=== PATIENT | female | born 1950 | race Native Hawaiian/Other Pacific Islander ===

== ENCOUNTER 2018-03-16 10:19 | Outpatient (CLI) | payer MEDICARE, MEDICAID | END 2018-03-16 10:20 | disposition home or self-care (01) | LOC: BICMAMMO 10:19 | PROVIDERS: ATTEND Family Medicine | DX: Z12.31 Encounter for screening mammogram for malignant neoplasm of breast (principal); R92.1 Mammographic calcification found on diagnostic imaging of breast | CPT/HCPCS: 77063; 77067 ==

== ENCOUNTER 2019-01-03 08:34 | Emergency (ER) | payer MEDICARE, MEDICAID ==
[2019-01-03] MEDS ORDERED: Acetaminophen 500 MG TAB ONE (09:02)
[2019-01-03 09:11] LABS: #Basophils 0.1 thou/uL (0.0-0.2); #Eosinphils 0.1 thou/uL (0.0-0.7); #Lymphocytes 1.7 thou/uL (1.20-3.40); #Neutrophils 8.3 thou/uL (1.40-6.50); %Basophils 0.5 % (0.0-1.0); %Eosinophils 0.7 % (0.0-10.0); %Lymphocytes 15.7 % (21.0-51.0); %Monocytes 8.8 % (0.0-10.0); %Neutrophils 74.3 % (42.0-75.0); Hemoglobin 14.9 g/dL (12.0-16.0); Mean Corpuscular HGB CONC 34.9 g/dL (32.0-36.0); Mean Corpuscular Hemoglobin 30.3 pg (27.0-31.0); Mean Corpuscular Volume 86.7 fL (78.0-98.0); Mean Platelet Volume 9.3 fL (7.4-10.4); Platelet Count 161 thou/uL (130-400); Red Blood Cell (RBC) Count 4.92 mill/uL (4.20-5.40); White Blood Cell (WBC) Count 11.1 thou/uL (4.8-10.8)
--- NOTE | 2019-01-03 09:25 | RAD ---
EXAM: Portable chest PROVIDED CLINICAL HISTORY: Dyspnea COMPARISON: 01/12/2013 FINDINGS: Cardiac and mediastinal silhouette is within normal limits. No focal consolidation, pleural fluid or pneumothorax evident. Atherosclerosis and emphysematous changes are redemonstrated. IMPRESSION: No evidence for an acute cardiopulmonary process.
[2019-01-03] MEDS ORDERED: cefTRIAXone\\ROCEPHIN 1 GM VIAL ONE (09:33)
[2019-01-03 09:36] LABS: ALT (SGPT) 25 U/L (8-55); AST (SGOT) 29 U/L (5-34); Albumin 4.2 g/dL (3.4-4.8); Alkaline Phosphatase 123 U/L (40-150); Anion Gap 12 mmol/L (10-20); BUN (Urea Nitrogen) 11 mg/dL (9.8-20.1); Bilirubin, Total 0.6 mg/dL (0.2-1.2); Calc. Creatinine Clearance 0 mL/min (70-130); Calcium 9.8 mg/dL (7.8-10.44); Carbon Dioxide 22 mmol/L (23-31); Chloride 101 mmol/L (98-107); Estimated GFR-MDRD 60; Globulin 3.6 g/dL (2.4-3.5); Glucose 231 mg/dL (80-115); Potassium 4.4 mmol/L (3.5-5.1); Protein, Total 7.8 g/dL (6.0-8.3); Sodium 131 mmol/L (136-145)
[2019-01-03] MEDS ORDERED: Azithromycin 250 MG TAB ONE (11:56)
== END 2019-01-03 12:03 | disposition home or self-care (01) ==
LOC: ERS 08:34
DX: R05 Cough (principal); R50.9 Fever, unspecified; E03.9 Hypothyroidism, unspecified; E11.9 Type 2 diabetes mellitus without complications; E78.5 Hyperlipidemia, unspecified; J45.909 Unspecified asthma, uncomplicated; K21.9 Gastro-esophageal reflux disease without esophagitis
CPT/HCPCS: 36415; 71045; 80053; 83605; 85025; 87040; 87804; 94640; 96361; 96365; J0696; J7620

== ENCOUNTER 2019-04-14 07:18 | Outpatient (CLI) | payer MEDICARE, MEDICAID | END 2019-04-14 07:19 | disposition home or self-care (01) | LOC: CP 07:18 | PROVIDERS: ATTEND Internal Medicine | DX: J45.909 Unspecified asthma, uncomplicated (principal) | CPT/HCPCS: 36415; 80053; 80061; 83036; 84439; 84443; 94060; 94727; 94729 ==

== ENCOUNTER 2019-05-06 08:57 | Outpatient (CLI) | payer MEDICARE, MEDICAID ==
--- NOTE | 2019-05-06 10:32 | MMO ---
Bilateral MAMMO Bilat Screen DDI+NO. CLINICAL HISTORY: Patient is 68 years old and is seen for screening. The patient has no family history of breast cancer. The patient has no personal history of cancer. The patient has a history of left Ultrasound Guided Core Biopsy in July, - benign and bilateral Breast reduction at age 27 - benign. VIEWS: The views performed were: bilateral craniocaudal with tomosynthesis and bilateral mediolateral oblique with tomosynthesis. FILMS COMPARED: The present examination has been compared to prior imaging studies performed at [facility] on 06/14/2015, 02/20/2017 and 03/16/2018, and at [facility] on 06/08/2015. MAMMOGRAM FINDINGS: There are scattered fibroglandular densities. There are vascular calcifications seen in both breasts. There are no suspicious masses, suspicious calcifications, or new areas of architectural distortion. IMPRESSION: THERE IS NO MAMMOGRAPHIC EVIDENCE OF MALIGNANCY. A ROUTINE FOLLOW-UP MAMMOGRAM IN 1 YEAR IS RECOMMENDED. THE RESULTS OF THIS EXAM WERE SENT TO THE PATIENT. ACR BI-RADS Category 2 - Benign finding MAMMOGRAPHY NOTE: 1. A negative mammogram report should not delay a biopsy if a dominant of clinically suspicious mass is present. 2. Approximately 10% to 15% of breast cancers are not detected by mammography. 3. Adenosis and dense breasts may obscure an underlying neoplasm. Reported by: VANESA COLLINS MD Electonically Signed: [id number]
== END 2019-05-06 08:58 | disposition home or self-care (01) ==
LOC: BICMAMMO 08:57
PROVIDERS: ATTEND Family Medicine
DX: Z12.31 Encounter for screening mammogram for malignant neoplasm of breast (principal)
CPT/HCPCS: 77063; 77067

== ENCOUNTER 2019-08-19 10:09 | Outpatient (CLI) | payer MEDICARE, MEDICAID ==
--- NOTE | 2019-08-19 11:01 | CT ---
CT Stone Protocol 08/19/2019 12:00 AM HISTORY: Nephrolithiasis. COMPARISON: None. Technique: Multiple contiguous axial CT images are obtained through the abdomen and pelvis without IV contrast. Coronal reformats are provided. FINDINGS: This examination is limited for the evaluation of solid organs and vascular structures due to the lac k of intravenous contrast. Lower Chest: Mild bibasilar atelectasis. Abdomen: Liver: Grossly normal non-enhanced CT appearance. Gallbladder: Within normal limits for CT imaging. Pancreas: Grossly normal nonenhanced CT appearance. Spleen: Grossly normal nonenhanced CT appearance. Adrenals: Grossly normal nonenhanced CT appearance. Kidneys: No renal calculi are visualized, and there is no evidence of hydronephrosis. Ureters: No ureteral calculus is seen.. Pelvis: Urinary bladder: Decompressed but grossly within normal limits Reproductive Organs: Uterus is surgically absent. Lymph Nodes: No enlarged lymph nodes. Bowel: Small bowel is normal in caliber. Small amount retained fecal material seen throughout the col on. Appendix: The appendix is normal in caliber. Peritoneum: No free fluid, free air, or fluid collection. Retroperitoneum: within normal limits. Vessels: Vascular calcifications are seen in the abdominal aorta and involving the iliac arteries. Va scular calcifications are seen in the coronary arteries. Abdominal Wall: Tiny fat-containing umbilical hernia is present. Bones: Degenerative changes are seen in the spine IMPRESSION: 1. No renal or ureteral calculi are seen bilaterally. 2. Hysterectomy. 3. Vascular calcifications.
== END 2019-08-19 10:10 | disposition home or self-care (01) ==
LOC: BICCT 10:09
PROVIDERS: ATTEND Family Medicine
DX: N20.0 Calculus of kidney (principal); I70.90 Unspecified atherosclerosis; Z90.710 Acquired absence of both cervix and uterus
CPT/HCPCS: 74176

== ENCOUNTER 2020-04-03 10:46 | Emergency (ER) | payer MEDICARE, MEDICAID ==
[2020-04-03] MEDS ORDERED: Lidocaine 1% w/Epinephrine 1:100K 20 ML VIAL ONE (12:21)
[2020-04-03] MEDS ORDERED: Adacel (T-DAP) 0.5 ML SYRINGE ONE (12:22)
[2020-04-03] MEDS ORDERED: Bacitracin 1 PK ONE (13:06)
== END 2020-04-03 13:30 | disposition home or self-care (01) ==
LOC: ERS 10:46
DX: S81.812A Laceration without foreign body, left lower leg, initial encounter (principal); E03.9 Hypothyroidism, unspecified; K21.9 Gastro-esophageal reflux disease without esophagitis; E78.5 Hyperlipidemia, unspecified; J45.909 Unspecified asthma, uncomplicated; E11.9 Type 2 diabetes mellitus without complications; W25.XXXA Contact with sharp glass, initial encounter
CPT/HCPCS: 12001; 90471; 90715

== ENCOUNTER 2020-06-21 13:35 | Outpatient (CLI) | payer MEDICARE, MEDICAID ==
--- NOTE | 2020-06-21 14:01 | BD ---
EXAM: DEXA bone density examination HISTORY: 69-year-old postmenopausal female for screening COMPARISON: 06/08/2015 FINDINGS: L1--bone mineral density 0.904 g/sq cm; T score -0.8 L2--bone mineral density 1.034 g/sq cm; T score 0.1 L3--bone mineral density 1.130 g/sq cm; T score 0.4 L4--bone mineral density 1.202 g/sq cm; T score 1.3 Total L1-L4--bone mineral density 1.075 g/sq cm; T score 0.3 Left femoral neck--bone mineral density0.638; T score -1.9 Total proximal left femur--bone mineral density 0.918; T score -0.2 IMPRESSION: Osteopenia. This patient has a 10 year WHO fracture risk of a major osteoporotic fracture of 10% and of a hip fracture of 1.7%. When compared to the prior examination, the bone density in the spine is increased 5% and the bone density in the hip has increased 8%.
== END 2020-06-21 13:36 | disposition home or self-care (01) ==
LOC: BICMAMMO 13:35
PROVIDERS: ATTEND Family Medicine
DX: Z13.820 Encounter for screening for osteoporosis (principal); N95.1 Menopausal and female climacteric states; M85.89 Other specified disorders of bone density and structure, multiple sites
CPT/HCPCS: 77080

== ENCOUNTER 2020-08-22 09:52 | Outpatient (CLI) | payer MEDICARE, MEDICAID ==
--- NOTE | 2020-08-22 10:46 | MMO ---
Bilateral MAMMO Bilat Screen DDI+NO. CLINICAL HISTORY: Patient is 70 years old and is seen for screening. The patient has no family history of breast cancer. The patient has no personal history of cancer. The patient has a history of left Ultrasound Guided Core Biopsy in July, - benign and bilateral Breast reduction at age 27 - benign. VIEWS: The views performed were: bilateral craniocaudal with tomosynthesis and bilateral mediolateral oblique with tomosynthesis. FILMS COMPARED: The present examination has been compared to prior imaging studies performed at [facility] on 06/14/2015, 02/20/2017, 03/16/2018 and 05/06/2019. This study has been interpreted with the assistance of computer-aided detection. MAMMOGRAM FINDINGS: There are scattered fibroglandular densities. There is a stable nodule with associated biopsy clip seen in the outer region of the left breast. There are no suspicious masses, suspicious calcifications, or new areas of architectural distortion. IMPRESSION: THERE IS NO MAMMOGRAPHIC EVIDENCE OF MALIGNANCY. A ROUTINE FOLLOW-UP MAMMOGRAM IN 1 YEAR IS RECOMMENDED. THE RESULTS OF THIS EXAM WERE SENT TO THE PATIENT. ACR BI-RADS Category 2 - Benign finding MAMMOGRAPHY NOTE: 1. A negative mammogram report should not delay a biopsy if a dominant of clinically suspicious mass is present. 2. Approximately 10% to 15% of breast cancers are not detected by mammography. 3. Adenosis and dense breasts may obscure an underlying neoplasm. Reported by: PAUL TORRES MD Electonically Signed: [id number]
== END 2020-08-22 09:53 | disposition home or self-care (01) ==
LOC: BICMAMMO 09:52
PROVIDERS: ATTEND Family Medicine
DX: Z12.31 Encounter for screening mammogram for malignant neoplasm of breast (principal); Z98.890 Other specified postprocedural states
CPT/HCPCS: 77063; 77067

== ENCOUNTER 2020-12-16 11:47 | Emergency (ER) | payer MEDICARE, MEDICAID ==
[2020-12-16] MEDS ORDERED: hydrOXYzine 25 MG TAB ONE (12:16)
== END 2020-12-16 12:47 | disposition home or self-care (01) ==
LOC: ERS 11:47
DX: L23.9 Allergic contact dermatitis, unspecified cause (principal); E11.9 Type 2 diabetes mellitus without complications; E03.9 Hypothyroidism, unspecified; K21.9 Gastro-esophageal reflux disease without esophagitis; E78.5 Hyperlipidemia, unspecified; J45.909 Unspecified asthma, uncomplicated
CPT/HCPCS: 99282

== ENCOUNTER 2021-01-22 09:43 | Outpatient (CLI) | payer MEDICARE, MEDICAID | END 2021-01-22 09:44 | disposition home or self-care (01) | LOC: BICRAD 09:43 | DX: M25.561 Pain in right knee (principal); R07.81 Pleurodynia ==

== ENCOUNTER 2022-01-09 10:04 | Outpatient (CLI) | payer MEDICARE, MEDICAID | END 2022-01-09 10:05 | disposition home or self-care (01) | LOC: BICMAMMO 10:04 | DX: Z12.31 Encounter for screening mammogram for malignant neoplasm of breast (principal); Z91.89 Other specified personal risk factors, not elsewhere classified; Z98.890 Other specified postprocedural states | CPT/HCPCS: 77063; 77067 ==

== ENCOUNTER 2022-01-11 09:47 | Emergency (ER) | payer MEDICAID, MEDICARE ==
[2022-01-11] MEDS ORDERED: Famotidine/PF 20 mg/2ml Vial ONE (10:15)
== END 2022-01-11 14:02 | disposition home or self-care (01) ==
LOC: ERS 09:47
DX: T63.461A Toxic effect of venom of wasps, accidental (unintentional), initial encounter (principal); L53.9 Erythematous condition, unspecified; I10 Essential (primary) hypertension; E11.9 Type 2 diabetes mellitus without complications; E03.9 Hypothyroidism, unspecified; K21.9 Gastro-esophageal reflux disease without esophagitis; E78.5 Hyperlipidemia, unspecified; J45.909 Unspecified asthma, uncomplicated
CPT/HCPCS: 96374; S0028

== ENCOUNTER 2022-02-04 09:11 | Outpatient (CLI) | payer OTHER | END 2022-02-04 09:12 | disposition home or self-care (01) | LOC: BICMAMMO 09:11 | PROVIDERS: ATTEND Student in an Organized Health Care Education/Training Program | DX: M85.851 Other specified disorders of bone density and structure, right thigh (principal); Z78.0 Asymptomatic menopausal state | CPT/HCPCS: 77080 ==

== ENCOUNTER 2025-06-16 18:44 | Emergency (ER) | payer OTHER, MEDICAID ==
[2025-06-16 19:57] LABS: Hematocrit 29.3 % (36.0-47.0); Hemoglobin 9.5 g/dL (12.0-16.0); Mean Corpuscular Hemoglobin 29.5 pg (27.0-31.0); Mean Corpuscular Volume 91.0 fL (78.0-98.0); Platelet Count 258 10x3/uL (130-400); Red Blood Cell (RBC) Count 3.22 mill/uL (4.20-5.40); Reflex for Review?? YES; White Blood Cell (WBC) Count 42.57 10x3/uL (4.8-10.8)
[2025-06-16 20:09] LABS: INR-International Normal Ratio 1.3; PTT 31.3 sec (22.9-36.1); Prothrombin Time 16.1 sec (12.0-14.7)
[2025-06-16 20:17] LABS: ALT (SGPT) 44 U/L (Less than 34); AST (SGOT) 196 U/L (11-34); Albumin 3.0 g/dL (3.1-4.5); Alkaline Phosphatase 436 U/L (40-110); Anion Gap 18 mmol/L (10-20); BUN (Urea Nitrogen) 8 mg/dL (9.8-20.1); Bilirubin, Total 0.8 mg/dL (0.3-1.2); Calc. Creatinine Clearance 0 mL/min (70-130); Calcium 7.5 mg/dL (7.8-10.44); Carbon Dioxide 18 mmol/L (23-31); Chloride 107 mmol/L (98-107); Globulin 2.8 g/dL (2.4-3.5); Glucose 345 mg/dL (83-110); Potassium 4.4 mmol/L (3.5-5.1); Sodium 139 mmol/L (136-145)
[2025-06-16 20:23] LABS: Anisocytosis MODERATE=16-30 cells HPF (0-5); Platelet Adequacy Comment Platelets Normal; Polychromasia SLIGHT = 2-3 cells HPF (0-2); Smudge Cells 1.0 %
== END 2025-06-17 01:51 | disposition home or self-care (01) ==
LOC: ERS 18:44
DX: R60.0 Localized edema (principal); I10 Essential (primary) hypertension; E11.9 Type 2 diabetes mellitus without complications
CPT/HCPCS: 36415; 80053; 83880; 84484; 85025; 85060; 85610; 85730; 93005

== ENCOUNTER 2025-06-24 09:08 | Day surgery (SDC) | payer OTHER, MEDICAID ==
[2025-06-24] MEDS: Acetaminophen 500 MG TAB PO SCH (09:37)
[2025-06-24] MEDS: diphenhydrAMINE 25 MG CAP PO SCH (09:37)
[2025-06-24] MEDS ORDERED: diphenhydrAMINE 25 MG CAP ONE (09:37)
[2025-06-24] MEDS ORDERED: Acetaminophen 500 MG TAB ONE (09:37)
[2025-06-24] MEDS: cloNIDine 0.1 MG TAB PO SCH (13:40)
[2025-06-24] MEDS ORDERED: cloNIDine 0.1 MG TAB ONE (13:41)
[2025-06-24] MEDS: Furosemide 20 MG (2 mL) VIAL SLOW IVP SCH (14:04)
[2025-06-24 15:36] VITALS: TEMP 98
[2025-06-24 15:58] VITALS: BP 168/82
== END 2025-06-24 16:02 | disposition home or self-care (01) ==
LOC: ONC/OP 09:08
PROVIDERS: ATTEND Internal Medicine Hematology & Oncology
DX: D64.9 Anemia, unspecified (principal); D69.6 Thrombocytopenia, unspecified
CPT/HCPCS: 36430; 86850; 86900; 86901; 86920; 96374; J1642; J1940; P9016

== ENCOUNTER 2025-06-29 12:42 | Day surgery (SDC) | payer OTHER, MEDICAID ==
[2025-06-29] MEDS ORDERED: Acetaminophen 500 MG TAB ONE (13:32)
[2025-06-29] MEDS ORDERED: diphenhydrAMINE 25 MG CAP ONE (13:32)
[2025-06-29] MEDS: Acetaminophen 500 MG TAB PO SCH (13:33)
[2025-06-29] MEDS: diphenhydrAMINE 25 MG CAP PO SCH (13:33)
[2025-06-29 15:46] VITALS: TEMP 98.3
[2025-06-29 15:48] VITALS: BP 131/67
== END 2025-06-29 15:49 | disposition home or self-care (01) ==
LOC: ONC/OP 12:42
PROVIDERS: ATTEND Internal Medicine Hematology & Oncology
DX: D69.6 Thrombocytopenia, unspecified (principal); D64.9 Anemia, unspecified
CPT/HCPCS: 36430; 86850; 86900; 86901; J1642; P9035

== ENCOUNTER 2025-07-23 02:18 | Inpatient (IN) | payer OTHER, MEDICAID ==
[2025-07-23 03:15] LABS: Chloride 102 mmol/L (98-107); Sodium 142 mmol/L (136-145)
[2025-07-23 03:16] LABS: Albumin 2.6 g/dL (3.1-4.5); Glucose 163 mg/dL (83-110)
[2025-07-23 03:17] LABS: Globulin 1.9 g/dL (2.4-3.5)
[2025-07-23 03:18] LABS: Anion Gap 23 mmol/L (10-20); Carbon Dioxide 19 mmol/L (23-31)
[2025-07-23 03:19] LABS: Alkaline Phosphatase 230 U/L (40-110); Bilirubin, Total 0.7 mg/dL (0.3-1.2)
[2025-07-23 03:20] LABS: Calc. Creatinine Clearance 0 mL/min (70-130)
[2025-07-23] MEDS ORDERED: Ondansetron PF 4 MG/2 ML Vial ONE (03:20)
[2025-07-23 03:21] LABS: BUN (Urea Nitrogen) 20 mg/dL (9.8-20.1)
[2025-07-23 03:24] LABS: ALT (SGPT) 13 U/L (Less than 34); AST (SGOT) 22 U/L (11-34); Calcium 5.8 mg/dL (7.8-10.44); INR-International Normal Ratio 1.6; Magnesium 0.8 mg/dL (1.6-2.6); Potassium 2.0 mmol/L (3.5-5.1); Prothrombin Time 18.9 sec (12.0-14.7)
[2025-07-23 03:25] LABS: PTT 30.3 sec (22.9-36.1)
[2025-07-23] MEDS ORDERED: Magnesium 2 GM/50 ML BAG (IN WATER) ONE (03:51)
[2025-07-23 04:12] LABS: Free T4 (Free Thyroxine) Less than 0.42 ng/dL (0.70-1.48)
[2025-07-23 04:44] LABS: #Basophils 0.03 10x3/uL (0.0-0.2); #Eosinophils Less than 0.03 10x3/uL (0.0-0.7); #Monocytes 1.06 10x3/uL (0.11-0.59); #Neutrophils 5.16 10x3/uL (1.40-6.50); %Basophils 0.4 % (0.0-1.0); %Eosinophils 0.0 % (0.0-10.0); %Lymphocytes 21.0 % (21.0-51.0); %Monocytes 13.3 % (0.0-10.0); %Neutrophils 64.4 % (42.0-75.0); Hematocrit 13.7 % (36.0-47.0); Hemoglobin 4.7 g/dL (12.0-16.0); Mean Corpuscular Hemoglobin 33.6 pg (27.0-31.0); Mean Corpuscular Volume 97.9 fL (78.0-98.0); Platelet Count 2 10x3/uL (130-400); Red Blood Cell (RBC) Count 1.40 mill/uL (4.20-5.40); Reflex for Review?? YES; White Blood Cell (WBC) Count 8.00 10x3/uL (4.8-10.8)
[2025-07-23 05:09] LABS: Platelet Adequacy Comment Significant Decrease; RBC Morphology Within Normal Limits
[2025-07-23] MEDS ORDERED: Dextrose 50% Abboject 50 ML SYRINGE SLOW IVP PRN (05:34)
[2025-07-23] MEDS ORDERED: Glucagon 1 MG/ML KIT IM PRN (05:34)
[2025-07-23] MEDS: Potassium Chloride 20 MEQ in Premix 1 BAG IVPB SCH (07:52)
[2025-07-23] MEDS: Calcium Gluc 4.6 MEQ/10 ML (100 MG/ML) SLOW IVP SCH (08:04)
[2025-07-23 08:23] VITALS: BMI 32.7
[2025-07-23] MEDS ORDERED: Potassium Bicarbonate/Cit Ac 20 MEQ TAB PO SCH (08:30)
[2025-07-23] MEDS: Pantoprazole 40 MG VIAL IVP SCH (09:48)
[2025-07-23 13:12] LABS: Hematocrit 21.2 % (36.0-47.0); Hemoglobin 7.3 g/dL (12.0-16.0); Mean Corpuscular Hemoglobin 30.8 pg (27.0-31.0); Mean Corpuscular Volume 89.5 fL (78.0-98.0); Platelet Count 3 10x3/uL (130-400); Red Blood Cell (RBC) Count 2.37 mill/uL (4.20-5.40); White Blood Cell (WBC) Count 7.85 10x3/uL (4.8-10.8)
[2025-07-23 13:13] LABS: Platelet Count 3 10x3/uL (130-400)
[2025-07-23 13:23] LABS: INR-International Normal Ratio 1.4; Prothrombin Time 17.5 sec (12.0-14.7)
[2025-07-23 13:24] LABS: Fibrinogen 189 mg/dL (253-463); PTT 30.8 sec (22.9-36.1)
[2025-07-23 13:25] LABS: Anion Gap 17 mmol/L (10-20); BUN (Urea Nitrogen) 19 mg/dL (9.8-20.1); Calc. Creatinine Clearance 34 mL/min (70-130); Calcium 5.8 mg/dL (7.8-10.44); Carbon Dioxide 22 mmol/L (23-31); Chloride 105 mmol/L (98-107); Glucose 151 mg/dL (83-110); Magnesium 1.2 mg/dL (1.6-2.6); Potassium 2.5 mmol/L (3.5-5.1); Sodium 141 mmol/L (136-145)
[2025-07-23 13:26] LABS: D-Dimer Test 1.56 mcg/mL (0.27-0.43)
[2025-07-23 13:45] LABS: Anisocytosis SLIGHT = 6-15 cells HPF (0-5); Macrocytosis SLIGHT = 6-15 cells HPF (0-5); Microcytosis SLIGHT = 6-15 cells HPF (0-5); Platelet Adequacy Comment Significant Decrease; Smudge Cells 11.4 %; Spherocytes SLIGHT = 1-5 cells HPF (None Seen)
[2025-07-23] MEDS: PNEUMOC 20-VAL CONJ-DIP CRM/PF 0.5 ML SYRINGE IM ONE (13:52)
[2025-07-23] MEDS: Magnesium 2 GM/50 ML(in water) 2 GM in Premix 1 BAG IVPB SCH (15:06)
[2025-07-23] MEDS: Potassium Bicarbonate/Cit Ac 20 MEQ TAB PO SCH (15:06)
[2025-07-23] MEDS: CALCIUM GLUC 1 GM/NS 50 ML 1 GM in Premix 1 BAG IVPB SCH (15:06)
[2025-07-23 17:31] LABS: Hematocrit 19.8 % (36.0-47.0); Hemoglobin 6.7 g/dL (12.0-16.0); Mean Corpuscular Hemoglobin 30.7 pg (27.0-31.0); Mean Corpuscular Volume 90.8 fL (78.0-98.0); Platelet Count 5 10x3/uL (130-400); Red Blood Cell (RBC) Count 2.18 mill/uL (4.20-5.40); White Blood Cell (WBC) Count 7.47 10x3/uL (4.8-10.8)
[2025-07-23] MEDS: NS 0.9% w/ 40 MEQ KCL 1,000 ML IV SCH (19:43)
[2025-07-23 21:47] LABS: Campy jejuni + coli by PCR Negative (Negative); STEC Shiga Toxin 1+2 Negative (Negative); Salmonella spp. by PCR Negative (Negative); Shigella spp + EIEC by PCR Negative (Negative)
[2025-07-24 00:10] LABS: Anion Gap 16 mmol/L (10-20); BUN (Urea Nitrogen) 17 mg/dL (9.8-20.1); Calc. Creatinine Clearance 35 mL/min (70-130); Calcium 6.3 mg/dL (7.8-10.44); Carbon Dioxide 23 mmol/L (23-31); Chloride 104 mmol/L (98-107); Glucose 141 mg/dL (83-110); Potassium 2.9 mmol/L (3.5-5.1); Sodium 140 mmol/L (136-145)
[2025-07-24] MEDS: Acetaminophen 325 MG TAB PO PRN (00:23)
[2025-07-24 00:34] LABS: Hematocrit 27.9 % (36.0-47.0); Hemoglobin 9.5 g/dL (12.0-16.0); Mean Corpuscular Hemoglobin 30.4 pg (27.0-31.0); Mean Corpuscular Volume 89.1 fL (78.0-98.0); Platelet Count 36 10x3/uL (130-400); Red Blood Cell (RBC) Count 3.13 mill/uL (4.20-5.40); White Blood Cell (WBC) Count 9.87 10x3/uL (4.8-10.8)
[2025-07-24 01:06] LABS: Magnesium 1.5 mg/dL (1.6-2.6)
[2025-07-24] MEDS: Furosemide 20 MG (2 mL) VIAL SLOW IVP SCH (01:07)
[2025-07-24] MEDS: Potassium Chloride 20 MEQ in Premix 1 BAG IVPB SCH (01:07)
[2025-07-24] MEDS: Calcium Gluc 4.6 MEQ/10 ML (100 MG/ML) SLOW IVP SCH (01:07)
[2025-07-24 01:16] LABS: Anisocytosis SLIGHT = 6-15 cells HPF (0-5); Platelet Adequacy Comment Platelets Decreased; Toxic Granulation SLIGHT
[2025-07-24 05:34] LABS: Hematocrit 28.2 % (36.0-47.0); Hemoglobin 10.0 g/dL (12.0-16.0); Mean Corpuscular Hemoglobin 30.4 pg (27.0-31.0); Mean Corpuscular Volume 85.7 fL (78.0-98.0); Platelet Count 27 10x3/uL (130-400); Red Blood Cell (RBC) Count 3.29 mill/uL (4.20-5.40); White Blood Cell (WBC) Count 11.24 10x3/uL (4.8-10.8)
[2025-07-24 05:50] LABS: Anion Gap 14 mmol/L (10-20); BUN (Urea Nitrogen) 16 mg/dL (9.8-20.1); Calc. Creatinine Clearance 34 mL/min (70-130); Calcium 6.5 mg/dL (7.8-10.44); Carbon Dioxide 25 mmol/L (23-31); Chloride 106 mmol/L (98-107); Glucose 134 mg/dL (83-110); Magnesium 1.4 mg/dL (1.6-2.6); Potassium 3.6 mmol/L (3.5-5.1); Sodium 141 mmol/L (136-145)
[2025-07-24 05:56] LABS: Anisocytosis SLIGHT = 6-15 cells HPF (0-5); Macrocytosis SLIGHT = 6-15 cells HPF (0-5); Platelet Adequacy Comment Platelets Decreased; Polychromasia SLIGHT = 2-3 cells HPF (0-2)
[2025-07-24] MEDS: Potassium Phosphate 15 MMOL in Sodium Chloride 0.9% 250 ML 250 ML IVPB SCH (06:42)
[2025-07-24] MEDS: CALCIUM GLUC 1 GM/NS 50 ML 1 GM in Premix 1 BAG IVPB SCH (06:42)
[2025-07-24] MEDS: Magnesium 2 GM/50 ML(in water) 2 GM in Premix 1 BAG IVPB SCH (06:42)
[2025-07-24] MEDS: Pantoprazole 40 MG VIAL IVP SCH (08:13)
[2025-07-25 03:57] LABS: #Basophils Less than 0.03 10x3/uL (0.0-0.2); #Eosinophils Less than 0.03 10x3/uL (0.0-0.7); #Monocytes 0.89 10x3/uL (0.11-0.59); #Neutrophils 10.30 10x3/uL (1.40-6.50); %Basophils 0.0 % (0.0-1.0); %Eosinophils 0.1 % (0.0-10.0); %Lymphocytes 5.9 % (21.0-51.0); %Monocytes 7.2 % (0.0-10.0); %Neutrophils 83.6 % (42.0-75.0); Hematocrit 29.2 % (36.0-47.0); Hemoglobin 10.3 g/dL (12.0-16.0); Mean Corpuscular Hemoglobin 30.7 pg (27.0-31.0); Mean Corpuscular Volume 86.9 fL (78.0-98.0); Platelet Count 15 10x3/uL (130-400); Red Blood Cell (RBC) Count 3.36 mill/uL (4.20-5.40); White Blood Cell (WBC) Count 12.32 10x3/uL (4.8-10.8)
[2025-07-25 04:13] LABS: ALT (SGPT) 13 U/L (Less than 34); AST (SGOT) 26 U/L (11-34); Albumin 2.5 g/dL (3.1-4.5); Alkaline Phosphatase 206 U/L (40-110); Anion Gap 14 mmol/L (10-20); BUN (Urea Nitrogen) 15 mg/dL (9.8-20.1); Bilirubin, Total 0.9 mg/dL (0.3-1.2); Calc. Creatinine Clearance 32 mL/min (70-130); Calcium 6.4 mg/dL (7.8-10.44); Carbon Dioxide 23 mmol/L (23-31); Chloride 106 mmol/L (98-107); Globulin 2.3 g/dL (2.4-3.5); Glucose 124 mg/dL (83-110); Magnesium 1.6 mg/dL (1.6-2.6); Potassium 3.6 mmol/L (3.5-5.1); Sodium 139 mmol/L (136-145)
[2025-07-25] MEDS: Mupirocin 1 GM TUBE TP SCH (08:48)
[2025-07-25] MEDS: CALCIUM GLUC 1 GM/NS 50 ML 1 GM in Premix 1 BAG IVPB SCH (11:29)
[2025-07-25] MEDS: Magnesium 2 GM/50 ML(in water) 2 GM in Premix 1 BAG IVPB SCH (11:30)
[2025-07-25] MEDS: Azithromycin 500 MG in Sodium Chloride 0.9% 250 ML 250 ML IVPB SCH (11:31)
[2025-07-25] MEDS: Albumin 25% 25 GM (100 mL) BOT IVPB SCH (13:16)
[2025-07-25] MEDS: cefTRIAXone\\ROCEPHIN 1 GM in Sodium Chloride 0.9% 100 ML IVPB SCH (13:16)
[2025-07-25 13:27] LABS: Platelet Count 14 10x3/uL (130-400)
[2025-07-25 13:47] LABS: Fibrinogen 271 mg/dL (253-463)
[2025-07-25 13:48] LABS: D-Dimer Test 2.46 mcg/mL (0.27-0.43); INR-International Normal Ratio 1.3; PTT 36.7 sec (22.9-36.1); Prothrombin Time 16.4 sec (12.0-14.7)
[2025-07-25 13:58] LABS: CAUTI Indications for Culture Immunosuppressed; Glucose, Urine (Dipstick) Normal (Negative); Leukocyte 500 Leu/uL (Negative); Protein, Urine (Dipstick) 30 mg/dL (Neg-Trace); Specific Gravity, Urine 1.007 (1.002-1.036); WBC/HPF Greater than 50 HPF (0-3)
[2025-07-25 13:59] LABS: Bacteria/HPF 1+ HPF (None Seen)
[2025-07-25 14:03] LABS: Urine Culture Reflex Yes Yes
[2025-07-25] MEDS: Furosemide 40 MG (4 mL) VIAL SLOW IVP SCH (19:25)
[2025-07-25 19:39] LABS: Base Excess -9.4 mEq/L (-2.0 to +3.0); Calcium, Ionized (venous) 0.83 mmol/L (1.16-1.32); Chloride (VBG) 105 mmol/L (98-106); Hematocrit-VBG 38 % (36.0-47.0); Hemoglobin (Hb) 12.8 g/dL (11.7-16.1); Potassium (VBG) 4.02 mmol/L (3.70-5.30); Sodium 138 mmol/L (133-146)
[2025-07-25 19:40] LABS: Hematocrit 35.0 % (36.0-47.0); Hemoglobin 11.7 g/dL (12.0-16.0); Mean Corpuscular Hemoglobin 30.9 pg (27.0-31.0); Mean Corpuscular Volume 92.3 fL (78.0-98.0); Platelet Count 16 10x3/uL (130-400); Red Blood Cell (RBC) Count 3.79 mill/uL (4.20-5.40); White Blood Cell (WBC) Count 6.09 10x3/uL (4.8-10.8)
[2025-07-25 19:41] LABS: Actual Bicarbonate (HCO3v) 13.9 mEq/L (22-28)
[2025-07-25] MEDS: Furosemide 20 MG (2 mL) VIAL SLOW IVP SCH (19:50)
[2025-07-25 20:05] LABS: Anisocytosis MODERATE=16-30 cells HPF (0-5); Burr Cells MODERATE= 6-15 cells HPF (0-1); Dohle Bodies SLIGHT; Macrocytosis SLIGHT = 6-15 cells HPF (0-5); Microcytosis SLIGHT = 6-15 cells HPF (0-5); Platelet Adequacy Comment Platelets Decreased; Polychromasia SLIGHT = 2-3 cells HPF (0-2); Smudge Cells 2.8 %; Toxic Granulation SLIGHT
[2025-07-25 20:06] LABS: ALT (SGPT) 13 U/L (Less than 34); AST (SGOT) 28 U/L (11-34); Albumin 4.0 g/dL (3.1-4.5); Alkaline Phosphatase 323 U/L (40-110); Anion Gap 22 mmol/L (10-20); BUN (Urea Nitrogen) 14 mg/dL (9.8-20.1); Bilirubin, Total 1.0 mg/dL (0.3-1.2); Calc. Creatinine Clearance 31 mL/min (70-130); Calcium 7.5 mg/dL (7.8-10.44); Carbon Dioxide 14 mmol/L (23-31); Chloride 106 mmol/L (98-107); Globulin 2.5 g/dL (2.4-3.5); Glucose 124 mg/dL (83-110); Magnesium 2.0 mg/dL (1.6-2.6); Potassium 4.1 mmol/L (3.5-5.1); Sodium 138 mmol/L (136-145)
[2025-07-26 04:56] LABS: ALT (SGPT) 9 U/L (Less than 34); AST (SGOT) 16 U/L (11-34); Albumin 3.2 g/dL (3.1-4.5); Alkaline Phosphatase 178 U/L (40-110); Anion Gap 19 mmol/L (10-20); BUN (Urea Nitrogen) 14 mg/dL (9.8-20.1); Bilirubin, Total 0.7 mg/dL (0.3-1.2); Calc. Creatinine Clearance 31 mL/min (70-130); Calcium 7.0 mg/dL (7.8-10.44); Carbon Dioxide 22 mmol/L (23-31); Chloride 106 mmol/L (98-107); Globulin 1.7 g/dL (2.4-3.5); Glucose 184 mg/dL (83-110); Magnesium 1.7 mg/dL (1.6-2.6); Potassium 3.1 mmol/L (3.5-5.1); Sodium 144 mmol/L (136-145)
[2025-07-26 05:11] LABS: Hematocrit 25.4 % (36.0-47.0); Hemoglobin 8.6 g/dL (12.0-16.0); Mean Corpuscular Hemoglobin 30.4 pg (27.0-31.0); Mean Corpuscular Volume 89.8 fL (78.0-98.0); Platelet Count 15 10x3/uL (130-400); Red Blood Cell (RBC) Count 2.83 mill/uL (4.20-5.40); White Blood Cell (WBC) Count 13.12 10x3/uL (4.8-10.8)
[2025-07-26 05:53] LABS: Anisocytosis SLIGHT = 6-15 cells HPF (0-5); Platelet Adequacy Comment Platelets Decreased; Polychromasia SLIGHT = 2-3 cells HPF (0-2)
[2025-07-26] MEDS ORDERED: PHOS-NAK 1 PKT PACK PO PRN (10:00)
[2025-07-26] MEDS ORDERED: Potassium Chloride 20 MEQ in Premix 1 BAG IVPB PRN (10:00)
[2025-07-26] MEDS: Vancomycin 1.5 GM / NS 500ML VIAL-2-BAG IVPB SCH (11:41)
[2025-07-26] MEDS ORDERED: Vancomycin Dose by Levels Sliding Scale (Wt 71-99) FS SCH (12:00)
[2025-07-26 17:38] LABS: Iron 59 ug/dL (50-170); Iron Binding Capacity, Total 119 mcg/dL (265-497)
[2025-07-26] MEDS: Electrolyte Replacement Protocol 1 EACH FS ONE (18:05)
[2025-07-27 04:58] LABS: #Basophils 0.06 10x3/uL (0.0-0.2); #Eosinophils 0.04 10x3/uL (0.0-0.7); #Monocytes 1.57 10x3/uL (0.11-0.59); #Neutrophils 13.55 10x3/uL (1.40-6.50); %Basophils 0.3 % (0.0-1.0); %Eosinophils 0.2 % (0.0-10.0); %Lymphocytes 9.3 % (21.0-51.0); %Monocytes 9.0 % (0.0-10.0); %Neutrophils 77.9 % (42.0-75.0); Hematocrit 26.3 % (36.0-47.0); Hemoglobin 8.7 g/dL (12.0-16.0); Mean Corpuscular Hemoglobin 30.6 pg (27.0-31.0); Mean Corpuscular Volume 92.6 fL (78.0-98.0); Platelet Count 24 10x3/uL (130-400); Red Blood Cell (RBC) Count 2.84 mill/uL (4.20-5.40); Vancomycin, Random 14.0 ug/mL (See Comment); White Blood Cell (WBC) Count 17.41 10x3/uL (4.8-10.8)
[2025-07-27 05:06] LABS: ALT (SGPT) 8 U/L (Less than 34); AST (SGOT) 14 U/L (11-34); Albumin 2.9 g/dL (3.1-4.5); Alkaline Phosphatase 180 U/L (40-110); Anion Gap 17 mmol/L (10-20); BUN (Urea Nitrogen) 16 mg/dL (9.8-20.1); Bilirubin, Total 0.6 mg/dL (0.3-1.2); Calc. Creatinine Clearance 37 mL/min (70-130); Calcium 6.9 mg/dL (7.8-10.44); Carbon Dioxide 23 mmol/L (23-31); Chloride 110 mmol/L (98-107); Globulin 1.7 g/dL (2.4-3.5); Glucose 147 mg/dL (83-110); Potassium 3.0 mmol/L (3.5-5.1); Sodium 147 mmol/L (136-145)
[2025-07-27] MEDS: Albumin 25% 25 GM (100 mL) BOT IVPB SCH (07:52)
[2025-07-27 10:04] LABS: Potassium 3.8 mmol/L (3.5-5.1)
[2025-07-27] MEDS: Vancomycin HCl 750 MG in Sodium Chloride 0.9% 250 ML 250 ML IVPB SCH (10:14)
[2025-07-27] MEDS: Torsemide 20 MG TAB PO SCH (12:02)
[2025-07-27] MEDS: Melatonin 3 MG TAB PO SCH (21:47)
[2025-07-27] MEDS: Furosemide 100 MG (10 mL) VIAL SLOW IVP SCH (21:47)
[2025-07-28 03:57] LABS: Hematocrit 24.7 % (36.0-47.0); Hemoglobin 8.3 g/dL (12.0-16.0); Mean Corpuscular Hemoglobin 31.0 pg (27.0-31.0); Mean Corpuscular Volume 92.2 fL (78.0-98.0); Platelet Count 42 10x3/uL (130-400); Red Blood Cell (RBC) Count 2.68 mill/uL (4.20-5.40); White Blood Cell (WBC) Count 23.70 10x3/uL (4.8-10.8)
[2025-07-28 04:22] LABS: Anisocytosis SLIGHT = 6-15 cells HPF (0-5); Nucleated RBC (Manual Ct) 1 % (0); Platelet Adequacy Comment Platelets Decreased; Polychromasia SLIGHT = 2-3 cells HPF (0-2); Toxic Granulation SLIGHT
[2025-07-28 08:13] LABS: Vancomycin, Trough 15.5 ug/mL
[2025-07-28 11:08] LABS: ALT (SGPT) 10 U/L (Less than 34); AST (SGOT) 23 U/L (11-34); Albumin 3.4 g/dL (3.1-4.5); Alkaline Phosphatase 217 U/L (40-110); Anion Gap 17 mmol/L (10-20); BUN (Urea Nitrogen) 16 mg/dL (9.8-20.1); Bilirubin, Total 0.9 mg/dL (0.3-1.2); Calc. Creatinine Clearance 40 mL/min (70-130); Calcium 8.0 mg/dL (7.8-10.44); Carbon Dioxide 25 mmol/L (23-31); Chloride 107 mmol/L (98-107); Globulin 2.0 g/dL (2.4-3.5); Glucose 112 mg/dL (83-110); Potassium 2.8 mmol/L (3.5-5.1); Sodium 146 mmol/L (136-145)
[2025-07-28] MEDS: Vancomycin HCl 750 MG in Sodium Chloride 0.9% 250 ML 250 ML IVPB SCH (14:13)
[2025-07-28] MEDS: Furosemide 40 MG (4 mL) VIAL SLOW IVP SCH (14:13)
[2025-07-28] MEDS: Melatonin 3 MG TAB PO SCH (20:40)
[2025-07-28 22:24] LABS: Potassium 3.2 mmol/L (3.5-5.1)
[2025-07-28] MEDS: Guaifenesin DM 100-10/5 ML UDCUP PO PRN (22:29)
[2025-07-29 04:11] LABS: Hematocrit 25.7 % (36.0-47.0); Hemoglobin 8.4 g/dL (12.0-16.0); Mean Corpuscular Hemoglobin 30.7 pg (27.0-31.0); Mean Corpuscular Volume 93.8 fL (78.0-98.0); Platelet Count 71 10x3/uL (130-400); Red Blood Cell (RBC) Count 2.74 mill/uL (4.20-5.40); White Blood Cell (WBC) Count 25.21 10x3/uL (4.8-10.8)
[2025-07-29 04:44] LABS: Anisocytosis SLIGHT = 6-15 cells HPF (0-5); Platelet Adequacy Comment Platelets Decreased; Polychromasia SLIGHT = 2-3 cells HPF (0-2); Smudge Cells 5.0 %; Toxic Granulation SLIGHT
[2025-07-29 04:51] LABS: ALT (SGPT) 9 U/L (Less than 34); AST (SGOT) 20 U/L (11-34); Albumin 2.9 g/dL (3.1-4.5); Alkaline Phosphatase 242 U/L (40-110); Anion Gap 16 mmol/L (10-20); BUN (Urea Nitrogen) 18 mg/dL (9.8-20.1); Bilirubin, Total 0.8 mg/dL (0.3-1.2); Calc. Creatinine Clearance 43 mL/min (70-130); Calcium 7.8 mg/dL (7.8-10.44); Carbon Dioxide 25 mmol/L (23-31); Chloride 109 mmol/L (98-107); Globulin 2.1 g/dL (2.4-3.5); Glucose 118 mg/dL (83-110); Magnesium 1.1 mg/dL (1.6-2.6); Potassium 3.2 mmol/L (3.5-5.1); Sodium 147 mmol/L (136-145)
[2025-07-29] MEDS: Furosemide 40 MG (4 mL) VIAL SLOW IVP SCH ×2 (08:45→14:41)
[2025-07-29] MEDS: Magnesium 2 GM/50 ML(in water) 2 GM in Premix 1 BAG IVPB PRN (08:52)
[2025-07-29 10:48] LABS: Potassium 3.3 mmol/L (3.5-5.1)
[2025-07-29] MEDS: LevoFLOXacin 750 mg/D5W 750 MG in Premix 1 BAG IVPB SCH (13:19)
[2025-07-29 13:31] LABS: Vancomycin, Trough 16.3 ug/mL
[2025-07-29 21:01] VITALS: BMI 36.1
[2025-07-30 05:25] LABS: Vancomycin, Trough 18.8 ug/mL
[2025-07-30 05:27] LABS: CRP, High Sensitivity at Bryan 3.22 mg/dL (< or = 0.5)
[2025-07-30 05:28] LABS: Anion Gap 15 mmol/L (10-20); BUN (Urea Nitrogen) 18 mg/dL (9.8-20.1); Calc. Creatinine Clearance 43 mL/min (70-130); Calcium 8.1 mg/dL (7.8-10.44); Carbon Dioxide 28 mmol/L (23-31); Chloride 106 mmol/L (98-107); Glucose 113 mg/dL (83-110); Magnesium 1.6 mg/dL (1.6-2.6); Potassium 3.1 mmol/L (3.5-5.1); Sodium 146 mmol/L (136-145)
[2025-07-30 05:30] LABS: #Basophils 0.04 10x3/uL (0.0-0.2); #Eosinophils 0.06 10x3/uL (0.0-0.7); #Monocytes 1.58 10x3/uL (0.11-0.59); #Neutrophils 13.85 10x3/uL (1.40-6.50); %Basophils 0.2 % (0.0-1.0); %Eosinophils 0.3 % (0.0-10.0); %Lymphocytes 7.8 % (21.0-51.0); %Monocytes 9.2 % (0.0-10.0); %Neutrophils 80.3 % (42.0-75.0); Hematocrit 26.2 % (36.0-47.0); Hemoglobin 8.6 g/dL (12.0-16.0); Mean Corpuscular Hemoglobin 30.5 pg (27.0-31.0); Mean Corpuscular Volume 92.9 fL (78.0-98.0); Platelet Count 95 10x3/uL (130-400); Red Blood Cell (RBC) Count 2.82 mill/uL (4.20-5.40); White Blood Cell (WBC) Count 17.25 10x3/uL (4.8-10.8)
[2025-07-30 10:58] LABS: Potassium 3.3 mmol/L (3.5-5.1)
[2025-07-31 06:23] LABS: Vancomycin, Random 16.6 ug/mL (See Comment)
[2025-07-31 06:25] LABS: Anion Gap 16 mmol/L (10-20); BUN (Urea Nitrogen) 17 mg/dL (9.8-20.1); Calc. Creatinine Clearance 43 mL/min (70-130); Calcium 8.2 mg/dL (7.8-10.44); Carbon Dioxide 30 mmol/L (23-31); Chloride 104 mmol/L (98-107); Glucose 109 mg/dL (83-110); Potassium 2.9 mmol/L (3.5-5.1); Sodium 147 mmol/L (136-145)
[2025-07-31 06:31] LABS: #Basophils 0.05 10x3/uL (0.0-0.2); #Eosinophils 0.07 10x3/uL (0.0-0.7); #Monocytes 1.48 10x3/uL (0.11-0.59); #Neutrophils 12.40 10x3/uL (1.40-6.50); %Basophils 0.3 % (0.0-1.0); %Eosinophils 0.4 % (0.0-10.0); %Lymphocytes 8.4 % (21.0-51.0); %Monocytes 9.4 % (0.0-10.0); %Neutrophils 79.2 % (42.0-75.0); Hematocrit 25.9 % (36.0-47.0); Hemoglobin 8.5 g/dL (12.0-16.0); Mean Corpuscular Hemoglobin 30.7 pg (27.0-31.0); Mean Corpuscular Volume 93.5 fL (78.0-98.0); Platelet Count 109 10x3/uL (130-400); Red Blood Cell (RBC) Count 2.77 mill/uL (4.20-5.40); White Blood Cell (WBC) Count 15.67 10x3/uL (4.8-10.8)
[2025-07-31] MEDS: Potassium Chloride 20 MEQ in Premix 1 BAG IVPB SCH (08:56)
[2025-07-31 14:59] LABS: Potassium 3.6 mmol/L (3.5-5.1)
[2025-07-31 15:05] LABS: Magnesium 1.2 mg/dL (1.6-2.6)
[2025-07-31] MEDS: Potassium Chloride 20 MEQ in Premix 2 BAG IVPB SCH (19:02)
[2025-08-01 04:48] LABS: #Basophils 0.08 10x3/uL (0.0-0.2); #Eosinophils 0.11 10x3/uL (0.0-0.7); #Monocytes 1.46 10x3/uL (0.11-0.59); #Neutrophils 12.59 10x3/uL (1.40-6.50); %Basophils 0.5 % (0.0-1.0); %Eosinophils 0.7 % (0.0-10.0); %Lymphocytes 9.7 % (21.0-51.0); %Monocytes 9.0 % (0.0-10.0); %Neutrophils 77.2 % (42.0-75.0); Hematocrit 28.2 % (36.0-47.0); Hemoglobin 9.5 g/dL (12.0-16.0); Mean Corpuscular Hemoglobin 31.4 pg (27.0-31.0); Mean Corpuscular Volume 93.1 fL (78.0-98.0); Platelet Count 122 10x3/uL (130-400); Red Blood Cell (RBC) Count 3.03 mill/uL (4.20-5.40); White Blood Cell (WBC) Count 16.31 10x3/uL (4.8-10.8)
[2025-08-01 05:00] LABS: Anion Gap 17 mmol/L (10-20); BUN (Urea Nitrogen) 16 mg/dL (9.8-20.1); Calc. Creatinine Clearance 42 mL/min (70-130); Carbon Dioxide 31 mmol/L (23-31); Chloride 100 mmol/L (98-107); Potassium 3.0 mmol/L (3.5-5.1); Sodium 145 mmol/L (136-145)
[2025-08-01 05:01] LABS: Calcium 8.4 mg/dL (7.8-10.44); Glucose 125 mg/dL (83-110); Magnesium 1.9 mg/dL (1.6-2.6)
[2025-08-01 10:37] LABS: Potassium 3.0 mmol/L (3.5-5.1)
[2025-08-01 10:41] LABS: Vancomycin, Trough 15.1 ug/mL
[2025-08-01 19:36] LABS: Potassium 3.5 mmol/L (3.5-5.1)
[2025-08-02 04:35] LABS: Anion Gap 18 mmol/L (10-20); BUN (Urea Nitrogen) 16 mg/dL (9.8-20.1); Calc. Creatinine Clearance 35 mL/min (70-130); Calcium 7.7 mg/dL (7.8-10.44); Carbon Dioxide 29 mmol/L (23-31); Chloride 103 mmol/L (98-107); Glucose 147 mg/dL (83-110); Potassium 3.5 mmol/L (3.5-5.1); Sodium 146 mmol/L (136-145)
[2025-08-02 04:58] LABS: #Basophils 0.04 10x3/uL (0.0-0.2); #Eosinophils 0.06 10x3/uL (0.0-0.7); #Monocytes 1.19 10x3/uL (0.11-0.59); #Neutrophils 8.26 10x3/uL (1.40-6.50); %Basophils 0.4 % (0.0-1.0); %Eosinophils 0.5 % (0.0-10.0); %Lymphocytes 12.6 % (21.0-51.0); %Monocytes 10.5 % (0.0-10.0); %Neutrophils 72.6 % (42.0-75.0); Hematocrit 24.5 % (36.0-47.0); Hemoglobin 7.9 g/dL (12.0-16.0); Mean Corpuscular Hemoglobin 30.6 pg (27.0-31.0); Mean Corpuscular Volume 95.0 fL (78.0-98.0); Platelet Count 116 10x3/uL (130-400); Red Blood Cell (RBC) Count 2.58 mill/uL (4.20-5.40); White Blood Cell (WBC) Count 11.37 10x3/uL (4.8-10.8)
[2025-08-02] MEDS ORDERED: Furosemide 40 MG TAB PO SCH (07:30)
[2025-08-02 09:59] LABS: Potassium 3.5 mmol/L (3.5-5.1)
[2025-08-02] MEDS: Ondansetron PF 4 MG/2 ML Vial IVP PRN (16:20)
[2025-08-03 04:42] LABS: Hematocrit 25.7 % (36.0-47.0); Hemoglobin 8.3 g/dL (12.0-16.0); Mean Corpuscular Hemoglobin 31.0 pg (27.0-31.0); Mean Corpuscular Volume 95.9 fL (78.0-98.0); Platelet Count 121 10x3/uL (130-400); Red Blood Cell (RBC) Count 2.68 mill/uL (4.20-5.40); White Blood Cell (WBC) Count 11.77 10x3/uL (4.8-10.8)
[2025-08-03 04:51] LABS: Anion Gap 18 mmol/L (10-20); BUN (Urea Nitrogen) 15 mg/dL (9.8-20.1); Calc. Creatinine Clearance 39 mL/min (70-130); Calcium 7.7 mg/dL (7.8-10.44); Carbon Dioxide 26 mmol/L (23-31); Chloride 105 mmol/L (98-107); Glucose 125 mg/dL (83-110); Potassium 3.7 mmol/L (3.5-5.1); Sodium 145 mmol/L (136-145)
[2025-08-03 06:16] LABS: Anisocytosis SLIGHT = 6-15 cells HPF (0-5); Macrocytosis SLIGHT = 6-15 cells HPF (0-5); Platelet Adequacy Comment Platelets Decreased; Polychromasia SLIGHT = 2-3 cells HPF (0-2); Smudge Cells 9.4 %
[2025-08-03 08:38] VITALS: TEMP 97.4
[2025-08-03] MEDS: Carvedilol 3.125 MG TAB PO SCH (11:34)
[2025-08-03 12:52] VITALS: BP 157/84
== END 2025-08-03 13:03 | DRG 871 ==
LOC: ERS 02:18 → CCU 04:59 → MSONC 07-24 16:45 → CCU 07-26 01:36 → MSONC 07-26 12:56
PROVIDERS: ADMIT Internal Medicine; ATTEND Family Medicine
DX: A41.9 Sepsis, unspecified organism (principal); I50.33 Acute on chronic diastolic (congestive) heart failure; J18.9 Pneumonia, unspecified organism; J96.01 Acute respiratory failure with hypoxia; C22.1 Intrahepatic bile duct carcinoma; N17.9 Acute kidney failure, unspecified; D61.818 Other pancytopenia; A04.72 Enterocolitis due to Clostridium difficile, not specified as recurrent; I13.0 Hypertensive heart and chronic kidney disease with heart failure and stage 1 through stage 4 chronic kidney disease, or unspecified chronic kidney disease; D69.6 Thrombocytopenia, unspecified; D64.9 Anemia, unspecified; I10 Essential (primary) hypertension; E78.5 Hyperlipidemia, unspecified; I25.10 Atherosclerotic heart disease of native coronary artery without angina pectoris; E03.9 Hypothyroidism, unspecified; E11.9 Type 2 diabetes mellitus without complications; Z96.89 Presence of other specified functional implants; Z90.710 Acquired absence of both cervix and uterus; Z90.89 Acquired absence of other organs; Z98.86 Personal history of breast implant removal; Z80.0 Family history of malignant neoplasm of digestive organs; Z80.8 Family history of malignant neoplasm of other organs or systems; Z80.1 Family history of malignant neoplasm of trachea, bronchus and lung; Z87.891 Personal history of nicotine dependence; E87.6 Hypokalemia; E83.42 Hypomagnesemia; E83.51 Hypocalcemia; R19.7 Diarrhea, unspecified; Z92.3 Personal history of irradiation; Z79.4 Long term (current) use of insulin; Z79.899 Other long term (current) drug therapy; E78.00 Pure hypercholesterolemia, unspecified; E87.70 Fluid overload, unspecified; N18.30 Chronic kidney disease, stage 3 unspecified
CPT/HCPCS: 36415; 36416; 36430; 70450; 71045; 71250; 72125; 80048; 80053; 80202; 81001; 82274; 82550; 82728; 82805; 83010; 83540; 83550; 83605; 83615; 83735; 83880; 84100; 84145; 84439; 84443; 84481; 84484; 85025; 85046; 85049; 85060; 85300; 85362; 85384; 85610; 85730; 86141; 86850; 86900; 86901; 87040; 87077; 87086; 87186; 87324; 87428; 87449; 87505; 93005; 93306; 94640; 96361; 96365; 96366; 96375; J0456; J0612; J0613; J0692; J0696; J1642; J1815; J1940; J1956; J2060; J2405; J2470; J2543; J3373; J3475; J3480; J7030; J7050; P9016; P9035; P9047; P9059